=== PATIENT | female | born 1970 | race Caucasian/White ===

== ENCOUNTER 2020-07-21 11:07 | Emergency (ER) | payer MEDICAID, OTHER ==
[2020-07-21] MEDS ORDERED: GI Cocktail Oral Solution 30 ML PO ONE (11:25)
[2020-07-21 11:56] LABS: CHLORIDE,CL 105 mmol/L (98-107); SODIUM,NA 140 mmol/L (136-145)
--- NOTE | 2020-07-21 12:00 | EDM.PDOC ---
ED HPI GENERAL MEDICAL PROBLEM - General Chief Complaint: General Stated Complaint: EPIGASTRIC PAIN Time Seen by Provider: 07/21/20 11:21 Source of Information: Reports: Patient History Limitations: Reports: No Limitations - History of Present Illness INITIAL COMMENTS - FREE TEXT/NARRATIVE: Patient reports developing nausea this morning. She became worried after she tried to eat cereal and had two rapid brief jabbing sensations pain in epigastric area. This happened again after she laid on cough. No emesis. Also notes brief sensation SOB that resolved after she coughed. Grandson with mild fever/pending Covid test/negative influenza. She denies fevers/chills/body aches. No HEENT changes. Did have sinusitis/ear issues two weeks ago and received Z-pack for that. No current respiratory complaints. Chest pain does not radiate. No change in pain with burp/breathe/laying down. No diarrhea/new abdominal pain. Says she has longer colon than usual per and that causes some chronic discomfort. No urinary changes. No cardiac history but there is family history of CAD. No history of similar issues in past. - Related Data Allergies Allergy/AdvReac Type Severity Reaction Status Date / Time cephalexin Allergy Hives Verified 07/21/20 11:15 fluocinonide Allergy Anaphylactic Verified 07/21/20 11:15 Shock ibuprofen Allergy Anaphylactic Verified 07/21/20 11:15 Shock metronidazole Allergy Hives Verified 07/21/20 11:15 Penicillins Allergy Hives Verified 07/21/20 11:15 Sulfa (Sulfonamide Allergy Hives Verified 07/21/20 11:15 Antibiotics) Home Meds: Home Meds Albuterol [Ventolin HFA] 1 puff INH Q4HR PRN 07/21/20 [History] Levothyroxine 75 mcg PO ACBREAKFAST 07/21/20 [History] Past Medical History Respiratory History: Reports: Other (See Below) (reactive airway) Gastrointestinal History: Reports: Chronic Constipation Endocrine/Metabolic History: Reports: Hypothyroidism ED ROS GENERAL - Review of Systems Review Of Systems: Comprehensive ROS is negative, except as noted in HPI. ED EXAM, GENERAL - Physical Exam Exam: See Below Exam Limited By: No Limitations General Appearance: Alert, WD/WN, No Apparent Distress Eye Exam: Bilateral Eye: EOMI, PERRL Ears: Hearing Grossly Normal Nose: No: Nasal Deformity, Nasal Swelling, Nasal Drainage Throat/Mouth: Normal Lips, Normal Voice, No Airway Compromise Head: Atraumatic, Normocephalic Neck: Supple, Non-Tender, Full Range of Motion Respiratory/Chest: No Respiratory Distress, Lungs Clear, Normal Breath Sounds, No Accessory Muscle Use, Chest Non-Tender Cardiovascular: Regular Rate, Rhythm, No Murmur GI/Abdominal: Other (diffuse discomfort throughout all 4 quadrants. No specifically focal area of increased tenderness. ) (Female) Exam: Deferred Rectal (Female) Exam: Deferred Back Exam: No: Muscle Spasm Extremities: Normal Range of Motion, Normal Capillary Refill Neurological: Alert, Oriented, Normal Cognition Psychiatric: Normal Affect, Normal Mood Skin Exam: Warm, Dry, Intact, Normal Color #1 Interpretation EKG Date: 07/21/20 Time: 11:46 Rhythm: NSR Rate (Beats/Min): 80 [place]: Normal P-Wave: Present QRS: Normal ST-T: Normal QT: Normal Comparison: NA - No Prior EKG Course - Vital Signs Last Recorded V/S: Last Vital Signs Temp 36.4 C 07/21/20 11:10 Pulse 81 07/21/20 11:55 Resp 20 07/21/20 11:55 BP 123/63 07/21/20 11:55 Pulse Ox 100 07/21/20 11:55 - Orders/Labs/Meds Orders: Active Orders 24 hr Category Date Time Status EKG Documentation Completion [RC] ASDIRECTED Care 07/21/20 11:39 Active EKG Documentation Completion [RC] ASDIRECTED Care 07/21/20 11:39 Active Abdomen 1V Upright [CR] Stat Exams 07/21/20 11:53 Taken Chest 2V [CR] Stat Exams 07/21/20 11:39 Taken CORONAVIRUS COVID-19 VÍCTOR [MOLEC] Routine Lab 07/21/20 12:02 Ordered Labs: Laboratory Tests 07/21/20 07/21/20 07/21/20 Range/Units 11:30 11:30 11:30 WBC 3.4 L (4.0-10.2) K/uL RBC 4.61 (3.77-5.09) M/uL Hgb 14.1 (11.7-15.5) g/dL Hct 42.9 (34.0-46.0) % MCV 93.1 (84.0-98.0) fL MCH 30.6 (28.2-33.3) pg MCHC 32.9 (31.7-36.0) g/dL RDW 12.4 (11.2-14.1) % Plt Count 280 (150-350) K/uL Neut % (Auto) 47.0 (45.0-80.0) % Lymph % (Auto) 40.8 (10.0-50.0) % [place] % (Auto) 8.9 (2.0-14.0) % Eos % (Auto) 2.7 (0.0-5.0) % Baso % (Auto) 0.6 (0.0-2.0) % Neut # (Auto) 1.58 (1.40-7.00) K/uL Lymph # (Auto) 1.37 (0.50-3.50) K/uL [place] # (Auto) 0.30 (0.00-1.00) K/uL Eos # (Auto) 0.09 (0.00-0.50) K/uL Baso # (Auto) 0.02 (0.00-0.20) K/uL PT (9.5-12.0) SEC INR D-Dimer, Quantitative 396 (0-400) ng/mL Sodium 140 (136-145) mmol/L Potassium 4.1 (3.5-5.1) mmol/L Chloride 105 (98-107) mmol/L Carbon Dioxide 26.1 (21.0-32.0) mmol/L BUN 11 (7-18) mg/dL Creatinine 0.72 (0.51-1.17) mg/dL Est Cr Clr Drug Dosing TNP Estimated GFR (MDRD) > 60 mL/min Glucose 94 (74-106) mg/dL Calcium 9.0 (8.5-10.1) mg/dL Magnesium 1.8 (1.8-2.4) mg/dL Total Bilirubin 0.5 (0.2-1.0) mg/dL AST 14 L (15-37) U/L ALT 22 (12-78) U/L Alkaline Phosphatase 73 (46-116) IU/L Troponin I 0.000 (0.000-0.056) ng/mL Total Protein 7.5 (6.4-8.2) g/dL Albumin 3.7 (3.4-5.0) g/dL Amylase (25-115) U/L Lipase (73-393) U/L 07/21/20 07/21/20 Range/Units 11:30 11:30 WBC (4.0-10.2) K/uL RBC (3.77-5.09) M/uL Hgb (11.7-15.5) g/dL Hct (34.0-46.0) % MCV (84.0-98.0) fL MCH (28.2-33.3) pg MCHC (31.7-36.0) g/dL RDW (11.2-14.1) % Plt Count (150-350) K/uL Neut % (Auto) (45.0-80.0) % Lymph % (Auto) (10.0-50.0) % [place] % (Auto) (2.0-14.0) % Eos % (Auto) (0.0-5.0) % Baso % (Auto) (0.0-2.0) % Neut # (Auto) (1.40-7.00) K/uL Lymph # (Auto) (0.50-3.50) K/uL [place] # (Auto) (0.00-1.00) K/uL Eos # (Auto) (0.00-0.50) K/uL Baso # (Auto) (0.00-0.20) K/uL PT 9.3 L (9.5-12.0) SEC INR 0.9 D-Dimer, Quantitative (0-400) ng/mL Sodium (136-145) mmol/L Potassium (3.5-5.1) mmol/L Chloride (98-107) mmol/L Carbon Dioxide (21.0-32.0) mmol/L BUN (7-18) mg/dL Creatinine (0.51-1.17) mg/dL Est Cr Clr Drug Dosing Estimated GFR (MDRD) mL/min Glucose (74-106) mg/dL Calcium (8.5-10.1) mg/dL Magnesium (1.8-2.4) mg/dL Total Bilirubin (0.2-1.0) mg/dL AST (15-37) U/L ALT (12-78) U/L Alkaline Phosphatase (46-116) IU/L Troponin I (0.000-0.056) ng/mL Total Protein (6.4-8.2) g/dL Albumin (3.4-5.0) g/dL Amylase 32 (25-115) U/L Lipase 193 (73-393) U/L Meds: Medications Discontinued Medications Generic Name Dose Route Start Last Admin Trade Name Freq PRN Reason Stop Dose Admin Al Hydroxide/Mg Hydroxide 30 ml 07/21/20 11:25 07/21/20 11:38 Gi Cocktail PO 07/21/20 11:26 30 ml ONETIME ONE Administration Ondansetron HCl 4 mg 07/21/20 12:03 Zofran Odt PO 07/21/20 12:04 ONETIME ONE - Radiology Interpretation Free Text/Narrative:: chest xray unremarkable. Some stool noted on abdominal film but did not appear to be acutely constipated. - Re-Assessments/Exams Free Text/Narrative Re-Assessment/Exam: 07/21/20 12:[address] changes suggestive of ischemia on EKG. GI cocktail administered. Labs and xray ordered. 07/21/20 13:47 Normal labs, including CBC/Chem/Amylase/Lipase/Troponin/DDimer. Suspect viral illness/gastroenteritis. Cannot rule out Covid related GI complaints. Covid test ordered and will be performed tomorrow. Patient feels better since having the GI cocktail. Still with mild GI upset in epigastric area. Plan at this time is to discharge home. She is to observe for any additional symptom development. No work until Covid results available tomorr ow. May need additional evaluation if symptoms persist/do not follow normal viral course. She is agreeable with plan. 07/21/20 13:50 Patient refused take home Zofran for PRN use Departure - Departure Time of Disposition: 13:29 Disposition: Home, Self-Care 01 Condition: Good Clinical Impression: Gastroenteritis - Discharge Information *PRESCRIPTION DRUG MONITORING PROGRAM REVIEWED*: Not Applicable *COPY OF PRESCRIPTION DRUG MONITORING REPORT IN PATIENT LEILANI: Not Applicable Instructions: Viral Gastroenteritis, Adult, [id number] Referrals: Miriam Espino PA [Primary Care Provider] - Forms: ED Department Discharge Additional Instructions: Home/rest. See how you feel over the next 24-36 hours. See if any new symptoms develop. We will be running your Covid test tomorrow. No work until results available. Stick to clear liquids/broth/jello today for food. Stay hydrated. Follow up as needed if worsening problems/concerns. Further testing may be needed such as ultrasound or abdominal imaging if symptoms do not go away. Sepsis Event Note (ED) - Evaluation Sepsis Screening Result: No Definite Risk - Focused Exam Vital Signs: Vital Signs Temp Pulse Resp BP Pulse Ox 07/21/20 11:55 81 20 123/63 100 07/21/20 11:10 36.4 C 82 13 139/82 100 - My Orders Last 24 Hours: My Active Orders 07/21/20 11:39 EKG Documentation Completion [RC] ASDIRECTED EKG Documentation Completion [RC] ASDIRECTED Chest 2V [CR] Stat 07/21/20 11:53 Abdomen 1V Upright [CR] Stat 07/21/20 12:02 CORONAVIRUS COVID-19 VÍCTOR [MOLEC] Routine - Assessment/Plan Last 24 Hours: My Active Orders 07/21/20 11:39 EKG Documentation Completion [RC] ASDIRECTED EKG Documentation Completion [RC] ASDIRECTED Chest 2V [CR] Stat 07/21/20 11:53 Abdomen 1V Upright [CR] Stat 07/21/20 12:02 CORONAVIRUS COVID-19 VÍCTOR [MOLEC] Routine
[2020-07-21] MEDS ORDERED: Ondansetron 4 MG Tab.DIS PO ONE (12:03)
== END 2020-07-21 13:45 | disposition home or self-care (01) ==
LOC: LL.ED 11:07
DX: K52.9 Noninfective gastroenteritis and colitis, unspecified (principal); E03.9 Hypothyroidism, unspecified; Z88.1 Allergy status to other antibiotic agents; Z88.0 Allergy status to penicillin; Z88.6 Allergy status to analgesic agent; Z88.8 Allergy status to other drugs, medicaments and biological substances; Z88.2 Allergy status to sulfonamides; Z79.899 Other long term (current) drug therapy; Z20.828 Contact with and (suspected) exposure to other viral communicable diseases
CPT/HCPCS: 36415; 71046; 74018; 80053; 82150; 83690; 83735; 84484; 85025; 85379; 85610; 87635; 93005; 99284; A9270; 99283; U0002

== ENCOUNTER 2022-11-01 16:04 | Emergency (ER) | payer MEDICAID ==
[2022-11-01] MEDS ORDERED: Nitroglycerin 0.4 MG Tab.SL SL ONE (16:19)
[2022-11-01] MEDS ORDERED: Sodium Chloride 0.9% 10 ML Syringe FLUSH PRN (16:27)
[2022-11-01] MEDS ORDERED: GI Cocktail Oral Solution 30 ML PO ONE (16:29)
[2022-11-01 16:52] LABS: ANION GAP 10.9 meq/L (7-15); CHLORIDE,CL 103 mmol/L (98-107); SODIUM,NA 141 mmol/L (136-145)
[2022-11-01 16:59] LABS: ESTIMATED GFR 92 mL/min (>=60)
[2022-11-01] MEDS ORDERED: Pantoprazole 40 MG Vial IVPUSH ONE (17:49)
== END 2022-11-01 18:40 | disposition home or self-care (01) ==
LOC: LL.ED 16:04
DX: R07.89 Other chest pain (principal); E03.9 Hypothyroidism, unspecified; Z88.8 Allergy status to other drugs, medicaments and biological substances; Z88.5 Allergy status to narcotic agent; Z88.1 Allergy status to other antibiotic agents; Z88.0 Allergy status to penicillin; Z88.2 Allergy status to sulfonamides; Z91.041 Radiographic dye allergy status; Z88.6 Allergy status to analgesic agent; Z79.899 Other long term (current) drug therapy
CPT/HCPCS: 36415; 71046; 74019; 80053; 81003; 83605; 83735; 83880; 84484; 85025; 85379; 85610; 93005; 93010; 99284; 99285; A9270-GY

== ENCOUNTER 2022-12-27 09:13 | Emergency (ER) | payer BC, MEDICAID ==
[2022-12-27 10:16] LABS: CORONAVIRUS COVID-19 NAA NEGATIVE (NEGATIVE); RESPIRATORY SYNCYTIAL VIR NAA NEGATIVE (NEGATIVE)
[2022-12-27] MEDS ORDERED: Azithromycin 250 MG Tab PO ONE (11:06)
== END 2022-12-27 11:20 | disposition home or self-care (01) ==
LOC: LL.ED 09:13
DX: J02.0 Streptococcal pharyngitis (principal); E03.9 Hypothyroidism, unspecified; Z86.16 Personal history of COVID-19; Z87.891 Personal history of nicotine dependence; Z88.0 Allergy status to penicillin; Z88.1 Allergy status to other antibiotic agents; Z88.8 Allergy status to other drugs, medicaments and biological substances; Z88.2 Allergy status to sulfonamides; Z91.041 Radiographic dye allergy status; Z79.899 Other long term (current) drug therapy; Z20.822 Contact with and (suspected) exposure to COVID-19
CPT/HCPCS: 0241U; 87430; 99283; A9270-GY

== ENCOUNTER 2023-05-27 07:56 | Day surgery (SDC) | payer MEDICAID, BC ==
[~2023-05-27 07:56] MED LIST: Midazolam 1 MG/ML 2 ML SDV ONE; Propofol 200 MG/20 ML SDV ONE
[2023-05-27] MEDS ORDERED: Sodium Chloride 0.9% 10 ML Syringe FLUSH PRN (08:00)
[2023-05-27] MEDS: Lactated Ringers 1,000 ML IV SCH (08:14)
[2023-05-27] MEDS ORDERED: Midazolam 1 MG/ML 2 ML SDV ONE (08:52)
[2023-05-27] MEDS ORDERED: Glycopyrrolate 0.2 MG/ML SDV IVPUSH ONE (09:00)
[2023-05-27] MEDS ORDERED: Lidocaine 2% 5 ML SDV ONE (09:00)
== END 2023-05-27 10:14 | disposition home or self-care (01) ==
LOC: LL.SDS 07:56
PROVIDERS: ATTEND Surgery
DX: K21.9 Gastro-esophageal reflux disease without esophagitis (principal); F41.9 Anxiety disorder, unspecified; G43.109 Migraine with aura, not intractable, without status migrainosus; E03.9 Hypothyroidism, unspecified; E66.9 Obesity, unspecified; Z88.0 Allergy status to penicillin; Z88.1 Allergy status to other antibiotic agents; Z88.8 Allergy status to other drugs, medicaments and biological substances; Z88.5 Allergy status to narcotic agent; Z88.2 Allergy status to sulfonamides; Z79.890 Hormone replacement therapy; Z79.899 Other long term (current) drug therapy; Z87.891 Personal history of nicotine dependence; Z68.31 Body mass index [BMI] 31.0-31.9, adult
CPT/HCPCS: 00731; J2250; J2704; J3490; J7120

== ENCOUNTER 2023-10-01 12:51 | Emergency (ER) | payer BC ==
[2023-10-01] MEDS ORDERED: Sodium Chloride 0.9% 1,000 ML IV ONE ×2 (13:15→14:33)
[2023-10-01] MEDS ORDERED: Sodium Chloride 0.9% 10 ML Syringe FLUSH PRN (13:15)
[2023-10-01] MEDS ORDERED: Ondansetron 4 MG/2 ML SDV IVPUSH ONE (13:15)
[2023-10-01 13:23] LABS: BASOPHILS ABSOLUTE AUTO 0.01 K/uL (0.00-0.20); BASOPHILS PERCENT AUTO 0.2 % (0.0-2.0); EOSINOPHILS ABSOLUTE AUTO 0.16 K/uL (0.00-0.50); EOSINOPHILS PERCENT AUTO 2.6 % (0.0-5.0); HEMATOCRIT 41.4 % (34.0-46.0); HEMOGLOBIN 13.6 g/dL (11.7-15.5); LYMPHOCYTES ABSOLUTE AUTO 1.57 K/uL (0.50-3.50); LYMPHOCYTES PERCENT AUTO 25.6 % (10.0-50.0); MEAN CORPUSCULAR HEMOGLOBIN 30.4 pg (28.2-33.3); MEAN CORPUSCULAR HGB CONC 32.9 g/dL (31.7-36.0); MEAN CORPUSCULAR VOLUME 92.4 fL (84.0-98.0); MONOCYTES ABSOLUTE AUTO 0.56 K/uL (0.00-1.00); MONOCYTES PERCENT AUTO 9.1 % (2.0-14.0); NEUTROPHILS ABSOLUTE AUTO 3.83 K/uL (1.40-7.00); NEUTROPHILS PERCENT AUTO 62.5 % (45.0-80.0); PLATELET COUNT,PLT 372 K/uL (150-350); RED BLOOD CELL COUNT 4.48 M/uL (3.77-5.09); RED CELL DISTRIBUTION WIDTH 12.3 % (11.2-14.1); WHITE BLOOD CELL COUNT,WBC 6.1 K/uL (4.0-10.2)
[2023-10-01 13:31] LABS: APPEARANCE,URINE CLEAR; BILIRUBIN,URINE NEGATIVE (NEGATIVE); COLOR,URINE YELLOW; GLUCOSE,URINE NEGATIVE (NEGATIVE); KETONES,URINE NEGATIVE (NEGATIVE); LEUKOCYTE ESTERASE,URINE NEGATIVE (NEGATIVE); NITRITE,URINE NEGATIVE (NEGATIVE); OCCULT BLOOD,URINE NEGATIVE (NEGATIVE); PH,URINE 5.5 (5.0-9.0); PROTEIN,URINE NEGATIVE (NEGATIVE); UROBILINOGEN,URINE 0.2 E.U./dL (0.2-1.0)
[2023-10-01 13:31] LABS: ALANINE AMINOTRANSFERASE,ALT 45 U/L (12-78); ALBUMIN 3.6 g/dL (3.4-5.0); ALKALINE PHOSPHATASE 66 IU/L (46-116); ANION GAP 9.8 meq/L (7-15); ASPARTATE AMNIOTRANSFERASE,AST 28 U/L (15-37); BILIRUBIN TOTAL 0.7 mg/dL (0.2-1.0); BLOOD UREA NITROGEN,BUN 14 mg/dL (7-18); CALCIUM 8.7 mg/dL (8.5-10.1); CARBON DIOXIDE,CO2 29.2 mmol/L (21.0-32.0); CHLORIDE,CL 105 mmol/L (98-107); CREATININE 0.83 mg/dL (0.51-1.17); ESTIMATED GFR 84 mL/min (>=60); GLUCOSE RANDOM 102 mg/dL (70-99); MAGNESIUM 2.1 mg/dL (1.8-2.4); POTASSIUM,K 3.7 mmol/L (3.5-5.1); PROTEIN TOTAL,TP 7.6 g/dL (6.4-8.2); SODIUM,NA 144 mmol/L (136-145)
[2023-10-01 14:39] VITALS: BP 110/79; PULSE 54
[2023-10-01] MEDS ORDERED: Loperamide 2 MG Tab PO ONE (15:24)
== END 2023-10-01 15:40 | disposition home or self-care (01) ==
LOC: LL.ED 12:51
DX: K52.9 Noninfective gastroenteritis and colitis, unspecified (principal); E86.0 Dehydration; E03.9 Hypothyroidism, unspecified; Z86.16 Personal history of COVID-19; Z79.899 Other long term (current) drug therapy; Z88.0 Allergy status to penicillin; Z88.1 Allergy status to other antibiotic agents; Z88.5 Allergy status to narcotic agent; Z88.6 Allergy status to analgesic agent; Z88.8 Allergy status to other drugs, medicaments and biological substances; Z88.2 Allergy status to sulfonamides; Z91.018 Allergy to other foods
CPT/HCPCS: 36415; 74019; 80053; 81003; 83605; 83735; 85025; 96361; 96374; 99284-25; J2405; J7030

== ENCOUNTER 2024-06-17 21:43 | Emergency (ER) | payer BC, MEDICAID, OTHER ==
[2024-06-17] MEDS ORDERED: Sodium Chloride 0.9% 10 ML Syringe FLUSH PRN (21:48)
[2024-06-17] MEDS ORDERED: Nitroglycerin 0.4 MG Tab.SL SL PRN (21:48)
[2024-06-17 22:07] LABS: BASOPHILS ABSOLUTE AUTO 0.04 K/uL (0.00-0.20); BASOPHILS PERCENT AUTO 0.5 % (0.0-2.0); HEMATOCRIT 41.7 % (34.0-46.0); HEMOGLOBIN 13.6 g/dL (11.7-15.5); LYMPHOCYTES ABSOLUTE AUTO 2.02 K/uL (0.50-3.50); LYMPHOCYTES PERCENT AUTO 26.8 % (10.0-50.0); MEAN CORPUSCULAR HEMOGLOBIN 30.6 pg (28.2-33.3); MEAN CORPUSCULAR HGB CONC 32.6 g/dL (31.7-36.0); MEAN CORPUSCULAR VOLUME 93.9 fL (84.0-98.0); MONOCYTES ABSOLUTE AUTO 0.84 K/uL (0.00-1.00); MONOCYTES PERCENT AUTO 11.2 % (2.0-14.0); NEUTROPHILS ABSOLUTE AUTO 4.33 K/uL (1.40-7.00); NEUTROPHILS PERCENT AUTO 57.5 % (45.0-80.0); PLATELET COUNT,PLT 389 K/uL (150-350); RED BLOOD CELL COUNT 4.44 M/uL (3.77-5.09); RED CELL DISTRIBUTION WIDTH 12.4 % (11.2-14.1); WHITE BLOOD CELL COUNT,WBC 7.5 K/uL (4.0-10.2)
[2024-06-17 22:21] LABS: INR 0.9 (0.9-1.1); PROTHROMBIN TIME 9.3 SEC (9.0-11.1)
[2024-06-17 22:25] LABS: ALANINE AMINOTRANSFERASE,ALT 23 U/L (12-78); ALBUMIN 3.7 g/dL (3.4-5.0); ALKALINE PHOSPHATASE 83 IU/L (46-116); ASPARTATE AMNIOTRANSFERASE,AST 13 U/L (15-37); BILIRUBIN TOTAL 0.5 mg/dL (0.2-1.0); BLOOD UREA NITROGEN,BUN 11 mg/dL (7-18); CALCIUM 9.5 mg/dL (8.5-10.1); CHLORIDE,CL 105 mmol/L (98-107); CREATININE 1.01 mg/dL (0.51-1.17); GLUCOSE RANDOM 128 mg/dL (70-99); PROTEIN TOTAL,TP 7.7 g/dL (6.4-8.2); SODIUM,NA 143 mmol/L (136-145)
[2024-06-17 22:26] LABS: ESTIMATED GFR 66 mL/min (>=60)
== END 2024-06-17 23:25 | disposition home or self-care (01) ==
LOC: LL.ED 21:43
DX: R07.89 Other chest pain (principal); R41.9 Unspecified symptoms and signs involving cognitive functions and awareness; E03.9 Hypothyroidism, unspecified; Z87.891 Personal history of nicotine dependence; Z86.16 Personal history of COVID-19; Z79.899 Other long term (current) drug therapy; Z88.0 Allergy status to penicillin; Z88.1 Allergy status to other antibiotic agents; Z88.5 Allergy status to narcotic agent; Z88.6 Allergy status to analgesic agent; Z88.2 Allergy status to sulfonamides; Z91.018 Allergy to other foods; Z88.8 Allergy status to other drugs, medicaments and biological substances
CPT/HCPCS: 36415; 71045; 80053; 83735; 84484; 85025; 85610; 93005; 93010; 99284; 99285